=== PATIENT | male | born 1935 | race Caucasian/White ===

== ENCOUNTER 2016-12-08 20:22 | Observation (INO) ==
[2016-12-08] MEDS ORDERED: Ondansetron 4 MG/2 ML VIAL IVP ONE (20:45)
[2016-12-08] MEDS ORDERED: Acetaminophen 325 MG TABLET PO ONE (20:45)
[2016-12-08] MEDS ORDERED: 0.9 % Sodium Chloride 1,000 ML IVC ONE (20:45)
--- NOTE | 2016-12-08 20:49 | Emergency Department Note ---
Disposition Clinical Impression: UTI (urinary tract infection) Qualifiers: Urinary tract infection type: acute cystitis Hematuria presence: without hematuria Qualified Code(s): N30.00 - Acute cystitis without hematuria Disposition: Admitted As Inpatient Condition: Good Weakness HPI - General Chief complaint: ED Weakness Stated complaint: weakness Time Seen by Provider: 12/08/16 20:40 Source: patient Mode of arrival: wheelchair Limitations: no limitations Nursing Notes Reviewed: Yes Vital Signs Reviewed: Yes - History of Present Illness HPI Narrative: patient presents today with weakness. states he is too weak to get into the car or stand up. he states no fever. no abdominal pain. no fever. he has purulent yellow discharge in his urine. he self caths 3 times a day. he states he has been like this before when he had uti. no nausea, no diarrhea Pt Subjective Complaint: generalized weakness/fatigue Pain Scale: 0 - Related Data Home Medications Medication Instructions Recorded Confirmed Acetaminophen [Tylenol] 650 mg PO DAILY 01/28/16 12/08/16 Aspirin 81 mg PO DAILY 01/28/16 12/08/16 Captopril [Capoten] 12.5 mg PO DAILY 01/28/16 12/08/16 Carvedilol 25 mg PO BID 01/28/16 12/08/16 Spironolactone [Aldactone] 12.5 mg PO DAILY 01/28/16 12/08/16 Tamsulosin [Flomax] 0.4 mg PO DAILY 01/28/16 12/08/16 Allergies Allergy/AdvReac Type Severity Reaction Status Date / Time Sulfa (Sulfonamide AdvReac Hives Verified 08/04/16 17:43 Antibiotics) Review of Systems: ROS reviewed and negative except as per HPI Chart generated with voice recognition software Review of Systems: As Per HPI Past Medical History - Past Medical History Attestation: Yes The following information was validated with the patient. Source: patient Medical history: Reports: arthritis, CHF, hyperlipidemia Surgical history: Reports: non-contributory (Multiple surgeries including appendectomy, prostate surgery, multiple orthopedic surgeries and back surgery) Psychiatric history: Reports: no psych history - Social History Smoking Status: Former smoker Smokeless Tobacco Status: No Alcohol use: Reports: none Drug use: Reports: none Physical Exam General: NAD, VSS Head: normocephalic, atraumatic Neck: NO CLA, Supple Chest wall: normal rise, no creptius, no deformity noted Lungs: decreased breath sounds over the right lower lobe Heart: RRR, 1+pedal edema bilateral lower extremities Abd: soft, nontender, BS normal : deferred MSK: strength equal in all four extremities Ext: moves all four extremities, no obvious deformities Skin: cap refill normal, warm, dry Psych: normal affect, not anxious - General Limitations: no limitations Course Course Narrative: EKG interpreted by myself as a paced rhythm at a rate of [address] elevation he has flipped T waves in leads one to 3 aVF patient has uti, hx of self cathing. patient states that yesterday he didn't feel weak,b ut this morning he's been unable to get up and moving. he was unable to get himself out of the car on arrival to ED. hx of UTI, labwork reveals UTI today. Rocephin given. Given weakness, patient unable to walk and therefore cannot go home. discussed with hospitalist, will keep overnight for hydration abx and hopefully patient will be feeling better in th morning Vital Signs Temperature 98.4 F 12/08/16 20:24 Pulse Rate 77 12/08/16 20:24 Respiratory Rate 18 12/08/16 20:24 Blood Pressure 107/55 12/08/16 20:24 O2 Sat by Pulse Oximetry 93 12/08/16 20:24 Temperature 98.5 F 12/08/16 23:36 Pulse Rate 75 12/08/16 23:36 Respiratory Rate 18 12/08/16 23:52 Blood Pressure 125/61 12/08/16 23:52 O2 Sat by Pulse Oximetry 98 12/09/16 00:25 Oxygen Delivery Oxygen Delivery Room Air Weakness - Medical Records Medical records reviewed: Yes I reviewed the patient's medical records. - Lab Data Lab results reviewed: Yes I reviewed the patient's lab results. Result diagrams: 12/08/16 21:00 12/08/16 21:00 Lab Results 12/08/16 12/08/16 12/08/16 Range/Units 21:00 21:00 21:00 WBC 7.9 (4.3-11.1) K/mcL RBC 4.06 L (4.19-5.50) M/mcL Hgb 12.0 L (12.9-16.9) g/dL Hct 35.4 L (37.5-50.1) % MCV 87.2 (83.0-100.0) fL MCH 29.6 (28.0-33.3) pg MCHC 33.9 (31.6-35.5) g/dL RDW 13.7 (11.5-14.5) % Plt Count 160 (140-400) K/mcL MPV 9.2 L (9.4-12.4) fL Immature Gran % 0.3 (0-4) % Seg Neutrophils % 85.5 % Lymphocytes % 7.4 % Monocytes % 5.5 % Eosinophils % 0.9 % Basophils % 0.4 % Neutrophils # 6.8 (1.6-8.9) K/mcL Lymphocytes # 0.6 (0.6-4.6) K/mcL Monocytes # 0.4 (0.0-1.3) K/mcL Eosinophils # 0.1 (0.0-0.6) K/mcL Basophils # 0.0 (0.0-0.2) K/mcL PT 12.3 H (9.4-12.1) Seconds INR 1.1 Sodium 133 L (136-145) mEq/L Potassium 4.6 H (3.5-4.5) mEq/L Chloride 98 (98-109) mEq/L Carbon Dioxide 24 (19-29) mEq/L BUN 25 (8-26) mg/dL Creatinine 1.03 (0.72-1.25) mg/dL Est GFR ( Amer) > 60 (> 60) Est GFR (Non-Af Amer) > 60 (> 60) BUN/Creatinine Ratio 24 (6-26) Glucose 127 H (70-99) mg/dL Calculated Osmolality 282 (280-300) Lactic Acid (0.5-2.2) mmol/L Calcium 9.5 (8.6-10.8) mg/dL Ionized Calcium 1.17 (1.15-1.35) mmol/L Phosphorus 2.2 L (2.3-4.7) mg/dL Magnesium 2.0 (1.6-2.6) mg/dL Total Bilirubin 0.7 (0.2-1.2) mg/dL AST 28 (5-34) Units/L ALT 18 (0-55) Units/L Alkaline Phosphatase 78 (38-126) Units/L Troponin I (0-0.03) ng/mL Serum Total Protein 7.6 (6.0-8.3) g/dL Albumin 3.9 (3.5-5.0) g/dL Globulin 3.7 H (2.4-3.5) g/dL Albumin/Globulin Ratio 1.1 (1.1-2.2) Urine Color (Yellow) Urine Clarity (Clear) Urine pH (5.0-8.0) pH Units Ur Specific [place] (1.010-1.025) Urine Protein (Neg-Trace) mg/dL Urine Glucose (UA) (Normal) mg/dL Urine Ketones (Negative) mg/dL Urine Blood (Negative) Urine Nitrite (Negative) Urine Bilirubin (Negative) Urine Urobilinogen (Normal) mg/dL Ur Leukocyte Esterase (Negative) Urine Microscopic RBC (0-3) per hpf Urine Microscopic WBC (0-3) per hpf Ur Squamous Epith Cells (None-Few) per lpf Urine Bacteria (None-Few) per hpf Ur Culture Indicated? (NO) 12/08/16 12/08/16 12/08/16 Range/Units 21:00 21:00 21:27 WBC (4.3-11.1) K/mcL RBC (4.19-5.50) M/mcL Hgb (12.9-16.9) g/dL Hct (37.5-50.1) % MCV (83.0-100.0) fL MCH (28.0-33.3) pg MCHC (31.6-35.5) g/dL RDW (11.5-14.5) % Plt Count (140-400) K/mcL MPV (9.4-12.4) fL Immature Gran % (0-4) % Seg Neutrophils % % Lymphocytes % % Monocytes % % Eosinophils % % Basophils % % Neutrophils # (1.6-8.9) K/mcL Lymphocytes # (0.6-4.6) K/mcL Monocytes # (0.0-1.3) K/mcL Eosinophils # (0.0-0.6) K/mcL Basophils # (0.0-0.2) K/mcL PT (9.4-12.1) Seconds INR Sodium (136-145) mEq/L Potassium (3.5-4.5) mEq/L Chloride (98-109) mEq/L Carbon Dioxide (19-29) mEq/L BUN (8-26) mg/dL Creatinine (0.72-1.25) mg/dL Est GFR ( Amer) (> 60) Est GFR (Non-Af Amer) (> 60) BUN/Creatinine Ratio (6-26) Glucose (70-99) mg/dL Calculated Osmolality (280-300) Lactic Acid 2.0 (0.5-2.2) mmol/L Calcium (8.6-10.8) mg/dL Ionized Calcium (1.15-1.35) mmol/L Phosphorus (2.3-4.7) mg/dL Magnesium (1.6-2.6) mg/dL Total Bilirubin (0.2-1.2) mg/dL AST (5-34) Units/L ALT (0-55) Units/L Alkaline Phosphatase (38-126) Units/L Troponin I 0.00 (0-0.03) ng/mL Serum Total Protein (6.0-8.3) g/dL Albumin (3.5-5.0) g/dL Globulin (2.4-3.5) g/dL Albumin/Globulin Ratio (1.1-2.2) Urine Color Yellow (Yellow) Urine Clarity Cloudy A (Clear) Urine pH 7.0 (5.0-8.0) pH Units Ur Specific [place] 1.015 (1.010-1.025) Urine Protein Trace (Neg-Trace) mg/dL Urine Glucose (UA) Normal (Normal) mg/dL Urine Ketones Negative (Negative) mg/dL Urine Blood Trace-intact H (Negative) Urine Nitrite Negative (Negative) Urine Bilirubin Negative (Negative) Urine Urobilinogen Normal (Normal) mg/dL Ur Leukocyte Esterase Large H (Negative) Urine Microscopic RBC 3-5 H (0-3) per hpf Urine Microscopic WBC TNTC H (0-3) per hpf Ur Squamous Epith Cells Few (None-Few) per lpf Urine Bacteria Many H (None-Few) per hpf Ur Culture Indicated? YES A (NO) - Radiology Data Radiology results reviewed: Yes I reviewed the patient's radiology results. - EKG Data EKG attestation: Yes I reviewed and interpreted this EKG.
[2016-12-08 21:07] LABS: Basophils % 0.4 %; Eosinophils # 0.1 K/mcL (0.0-0.6); Eosinophils % 0.9 %; Hematocrit 35.4 % (37.5-50.1); Immature Granulocytes % 0.3 % (0-4); Lymphocytes # 0.6 K/mcL (0.6-4.6); Lymphocytes % 7.4 %; Mean Corpuscular HGB Conc 33.9 g/dL (31.6-35.5); Mean Corpuscular Hemoglobin 29.6 pg (28.0-33.3); Mean Corpuscular Volume 87.2 fL (83.0-100.0); Mean Platelet Volume 9.2 fL (9.4-12.4); Monocytes # 0.4 K/mcL (0.0-1.3); Monocytes % 5.5 %; Neutrophils # 6.8 K/mcL (1.6-8.9); Platelet Count 160 K/mcL (140-400); Red Blood Count 4.06 M/mcL (4.19-5.50); Red Cell Distribution Width 13.7 % (11.5-14.5); Segmented Neutrophils % 85.5 %
[2016-12-08 21:17] LABS: INR 1.1; Prothrombin Time 12.3 Seconds (9.4-12.1)
[2016-12-08 21:27] LABS: Alanine Aminotransferase 18 Units/L (0-55); Albumin 3.9 g/dL (3.5-5.0); Albumin/Globulin Ratio 1.1 (1.1-2.2); Alkaline Phosphatase 78 Units/L (38-126); Aspartate Amino Transferase 28 Units/L (5-34); BUN/Creatinine Ratio 24 (6-26); Bilirubin,Total 0.7 mg/dL (0.2-1.2); Blood Urea Nitrogen 25 mg/dL (8-26); Calcium 9.5 mg/dL (8.6-10.8); Carbon Dioxide 24 mEq/L (19-29); Chloride 98 mEq/L (98-109); Globulin 3.7 g/dL (2.4-3.5); Glucose 127 mg/dL (70-99); Osmolality,Calculated 282 (280-300); Phosphorous 2.2 mg/dL (2.3-4.7); Potassium 4.6 mEq/L (3.5-4.5); Sodium 133 mEq/L (136-145); Total Protein 7.6 g/dL (6.0-8.3); eGFR For African Americans > 60 (> 60); eGFR For Non-African Americans > 60 (> 60)
[2016-12-08 21:36] LABS: Bilirubin,Urine Negative (Negative); Blood,Urine Trace-intact (Negative); Clarity,Urine Cloudy (Clear); Color,Urine Yellow (Yellow); Glucose,Urine (UA) Normal (Normal); Ketones,Urine Negative (Negative); Leukocyte Esterase,Urine Large (Negative); Nitrite,Urine Negative (Negative); Protein,Urine Trace mg/dL (Neg-Trace); Specific Gravity,Urine 1.015 (1.010-1.025); Urobilinogen,Urine Normal (Normal)
[2016-12-08 21:45] LABS: Squamous Epithelial Cell,Urine Few per lpf (None-Few)
[2016-12-08 21:46] LABS: Bacteria,Urine Many per hpf (None-Few); WBC,Urine TNTC per hpf (0-3)
[2016-12-08 22:05] LABS: Ionized Calcium 1.17 mmol/L (1.15-1.35)
[2016-12-08] MEDS ORDERED: 0.9 % Sodium Chloride 1,000 ML IVC SCH (23:30)
[2016-12-08] MEDS ORDERED: Naloxone 0.4 MG/ML INJ IVP PRN (23:30)
[2016-12-08] MEDS ORDERED: Acetaminophen 325 MG TABLET PO PRN (23:30)
[2016-12-08] MEDS ORDERED: *HR* OxyCODONE Immed Rel 5 MG TABLET PO PRN (23:30)
[2016-12-08] MEDS ORDERED: Ondansetron 4 MG/2 ML VIAL IVP PRN (23:30)
[2016-12-09 07:51] LABS: Basophils % 0.4 %; Eosinophils % 0.2 %; Hematocrit 29.2 % (37.5-50.1); Immature Granulocytes % 0.8 % (0-4); Lymphocytes # 0.5 K/mcL (0.6-4.6); Lymphocytes % 9.9 %; Mean Corpuscular HGB Conc 34.2 g/dL (31.6-35.5); Mean Corpuscular Hemoglobin 29.9 pg (28.0-33.3); Mean Corpuscular Volume 87.4 fL (83.0-100.0); Mean Platelet Volume 9.6 fL (9.4-12.4); Monocytes # 0.4 K/mcL (0.0-1.3); Monocytes % 7.6 %; Neutrophils # 4.2 K/mcL (1.6-8.9); Platelet Count 127 K/mcL (140-400); Red Blood Count 3.34 M/mcL (4.19-5.50); Red Cell Distribution Width 13.8 % (11.5-14.5); Segmented Neutrophils % 81.1 %
[2016-12-09 08:04] LABS: BUN/Creatinine Ratio 24 (6-26); Blood Urea Nitrogen 18 mg/dL (8-26); Calcium 8.2 mg/dL (8.6-10.8); Carbon Dioxide 23 mEq/L (19-29); Chloride 99 mEq/L (98-109); Glucose 96 mg/dL (70-99); Osmolality,Calculated 270 (280-300); Potassium 4.4 mEq/L (3.5-4.5); Sodium 129 mEq/L (136-145); eGFR For African Americans > 60 (> 60); eGFR For Non-African Americans > 60 (> 60)
[2016-12-09] MEDS ORDERED: Spironolactone 25 MG TABLET PO SCH (09:00)
[2016-12-09] MEDS ORDERED: Acetaminophen 325 MG TABLET PO SCH (09:00)
[2016-12-09] MEDS ORDERED: Aspirin 81 MG TAB.CHEW PO SCH (09:00)
--- NOTE | 2016-12-09 14:11 | Electrocardiograph Report ---
[address] [address] Test Date: 2016-12-08 Pat Name: Abdullahi Angela Department: [id number] Room: [facility] Gender: M High Pressure Cleaner: TT : 1935 Requested By: Shelley Rizvi Order Number: [id number] Reading MD: Rani Casey Measurements Intervals [place] Rate: 73 P: 65 AL: 223 QRS: 188 QRSD: 154 T: 254 QT: 400 QTc: 425 Interpretive Statements ELECTRON[employer]IC[employer] PACEMAKER Electronically Signed On 12-09-2016 14:09:47 EDT by Rani Casey
[2016-12-09 15:09] VITALS: BP 97/57
--- NOTE | 2016-12-09 15:41 | Internal Med History&Physical ---
Date of Encounter: 12/09/16 Time of Encounter: 14:55 Assessment and Plan (1) UTI (urinary tract infection) Current visit: Yes Status: Acute He was given IV Rocephin in the emergency room. Urine culture was ordered. Qualifiers: Urinary tract infection type: acute cystitis Hematuria presence: without hematuria Qualified Code(s): N30.00 - Acute cystitis without hematuria Internal Medicine - H&P: HPI Chief complaint: Weakness and leg pain Admitted From: Home Plans for Post Hospital Care: Home History of present illness: Mr. Angela is a 81 year old male who came to emergency room complaining of progressive weakness and pain in his left leg onset a few hours previously. He had similar discomfort with previous urinary infections and was concerned he had a recurrent infection. He was evaluated in emergency room and admitted to [facility] with diagnoses of UTI. He states he has been doing straight cath 3 times daily at home for urinary retention. He has had prostatectomy in the past. He follows with Dr. Asencio on a regular basis. He denies kidney stones or other kidney or bladder disorders. He states he feels back to his baseline now and wishes to be discharged home. Past Med Surg Social Fam HX - Past Medical History Medical history: arthritis, CHF, hyperlipidemia Psychiatric history: no psych history - Past Surgical History Surgical History: non-contributory (Multiple surgeries including appendectomy, prostate surgery, multiple orthopedic surgeries and back surgery) - Social History Smoking Status: Former smoker Smokeless Tobacco Status: No Alcohol use: none Drug use: none Internal Medicine - H&P: Meds Acetaminophen [Tylenol] 650 mg PO DAILY 01/28/16 [History] Aspirin 81 mg PO DAILY 01/28/16 [History] Captopril [Capoten] 12.5 mg PO DAILY 01/28/16 [History] Carvedilol 25 mg PO BID 01/28/16 [History] Spironolactone [Aldactone] 12.5 mg PO DAILY 01/28/16 [History] Tamsulosin [Flomax] 0.4 mg PO DAILY 01/28/16 [History] 3 Allergy/AdvReac Type Severity Reaction Status Date / Time Sulfa (Sulfonamide AdvReac Hives Verified 08/04/16 17:43 Antibiotics) All Systems PM: A 10-system review of systems was performed and is negative for pertinent findings except as documented above in the HPI. Review of systems: Gen.: He states his weight has been stable past few months Cardiovascular: He has history of heart failure and reports LVEF of 31% on echocardiogram several years ago. He follows regularly with a [place] digital production operator. He has had ICD/pacemaker placed. He had pulmonary embolism in 1998 following prolonged illness with bed rest. He has had no recurrence. He denies hypertension or AL. Respiratory: He smoked from age [age] but denies chronic lung disease GI: Denies disorders of his liver gallbladder or exocrine pancreas : Per history of present illness Neurologic: He denies large distribution strokes or seizures. Endocrine: He has hyperlipidemia but denies diabetes or thyroid disease Hematologic/oncology: He denies blood disorders or cancers. He was unaware he had anemia. 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 - Constitutional Vitals: Temp Pulse Resp BP Pulse Ox 99.2 F 70 18 97/57 95 12/09/16 15:08 12/09/16 15:08 12/09/16 15:08 12/09/16 15:08 12/09/16 15:08 Exam: Gen.: He is a well-developed well-nourished male lying in bed who appears in no acute distress. HEENT: Head is atraumatic and normocephalic. Eyes: EOMI. There is no scleral icterus. Mouth: Mucosa is moist. Neck: Supple and nontender. There is no thyromegaly or adenopathy noted. Heart: Regular without murmurs gallops or ectopics Lungs: No wheezes or crackles are heard. Abdomen: Soft and nontender. No masses or guarding are noted. Extremities: There is no cyanosis edema, noted. Dorsalis pedis and posterior tibial pulses are trace to 1+ palpable bilaterally. Neurologic: Mental status: He is talkative and a good historian. Cranial nerves : Smile is symmetric. Forehead wrinkles bilaterally. Tongue protrudes midline. EOMI. Motor: There is no pronator drift. He has left foot drop. Cerebellar: Finger to nose is intact bilaterally. Skin: Warm and dry Internal Med - H&P Results - Labs CBC & Chem 7: 12/09/16 07:30 12/09/16 07:30 Labs: Short CBC 12/09/16 Range/Units 07:30 WBC 5.2 (4.3-11.1) K/mcL Hgb 10.0 L D (12.9-16.9) g/dL Hct 29.2 L (37.5-50.1) % Plt Count 127 L (140-400) K/mcL Neutrophils # 4.2 (1.6-8.9) K/mcL BMP 12/09/16 07:30 Sodium 129 L Potassium 4.4 Chloride 99 Carbon Dioxide 23 BUN 18 Creatinine 0.76 Glucose 96 Calcium 8.2 L
--- NOTE | 2016-12-09 15:53 | Discharge Summary ---
Date of Encounter: 12/09/16 Time of Encounter: 14:55 - Discharge Diagnosis (1) UTI (urinary tract infection) Priority: Primary Status: Acute Qualifiers: Urinary tract infection type: acute cystitis Hematuria presence: without hematuria Qualified Code(s): N30.00 - Acute cystitis without hematuria - Discharge Medications Prescriptions: Cefuroxime PO [Ceftin] 500 mg PO Q12HR #10 tablet Lactobacillus [Culturelle] 1 each PO BID #10 cap.[email or web address] Home Medications: Acetaminophen [Tylenol] 650 mg PO DAILY 01/28/16 [History] Aspirin 81 mg PO DAILY 01/28/16 [History] Captopril [Capoten] 12.5 mg PO DAILY 01/28/16 [History] Carvedilol 25 mg PO BID 01/28/16 [History] Spironolactone [Aldactone] 12.5 mg PO DAILY 01/28/16 [History] Tamsulosin [Flomax] 0.4 mg PO DAILY 01/28/16 [History] Cefuroxime PO [Ceftin] 500 mg PO Q12HR #10 tablet 12/09/16 [Rx] Lactobacillus [Culturelle] 1 each PO BID #10 cap.sprink 12/09/16 [Rx] Allergies/Adverse Reactions: 3 Allergy/AdvReac Type Severity Reaction Status Date / Time Sulfa (Sulfonamide AdvReac Hives Verified 08/04/16 17:43 Antibiotics) Date of admission: 12/08/16 22:48 Primary care physician: Dario Carrillo DO - Patient Status Disposition: Home, Self-Care Condition: Good Functional capacity at discharge: uses cane/walker Overall status at discharge: patient is progressing back to baseline - Discharge Instructions Follow Up With: Dario Carrillo DO [Primary Care Provider] - 1 week - Diet and Activity Activity: resume usual activities as tolerated Diet: advance to your usual diet Hospital course: Mr. Angela is a 81 year old male who came to emergency room complaining of progressive weakness and pain in his left leg onset a few hours previously. He had similar discomfort with previous urinary infections and was concerned he had a recurrent infection. He was evaluated in emergency room and admitted to [facility] with diagnoses of UTI. Initial orders were written by the emergency room physician. I saw him on December 09 and performed a history physical and discharge. By the time I saw him he reported he was feeling significantly improved and essentially back to baseline. He had tolerated IV Rocephin without difficulty. He will be prescribed Ceftin 500 mg twice a day for 5 days with lactobacillus at discharge. He will resume straight caths at home as prior to admission. He will follow with his PCP Dr. Carrillo within a week. - Time Spent with Patient Total time spent providing and/or coordinating discharge services: - Constitutional Vitals: Temp Pulse Resp BP Pulse Ox 99.2 F 70 18 97/57 95 12/09/16 15:08 12/09/16 15:08 12/09/16 15:08 12/09/16 15:08 12/09/16 15:08
== END 2016-12-09 16:17 | disposition home or self-care (01) ==
LOC: INPPIK 20:22 → EMEROOPIK 20:22 → INPPIK 22:50
PROVIDERS: ADMIT Internal Medicine; ATTEND Internal Medicine

== ENCOUNTER 2020-01-23 13:37 | Inpatient (IN) ==
[2020-01-23 14:54] LABS: Clarity,Urine Turbid (Clear); Color,Urine Brown (Yellow)
[2020-01-23 14:56] LABS: Bacteria,Urine Many per hpf (None-Few); Mucus,Urine Few per lpf (None-Few); RBC,Urine 50-100 per hpf (0-3); Squamous Epithelial Cell,Urine Few per hpf (None-Few); Triple Phosphate Crystal,Urine Present; WBC,Urine TNTC per hpf (0-3)
[2020-01-23] MEDS ORDERED: 0.9 % Sodium Chloride 1,000 ML IVC ONE ×2 (15:44→18:01)
[2020-01-23 16:08] LABS: Basophils % 0.3 %; Eosinophils # 0.2 K/mcL (0.0-0.6); Eosinophils % 1.3 %; Hematocrit 34.5 % (37.5-50.1); Hemoglobin 11.3 g/dL (12.9-16.9); Immature Granulocytes % 0.8 % (0-4); Lymphocytes # 0.7 K/mcL (0.6-4.6); Lymphocytes % 4.5 %; Mean Corpuscular HGB Conc 32.8 g/dL (31.6-35.5); Mean Corpuscular Hemoglobin 30.4 pg (28.0-33.3); Mean Corpuscular Volume 92.7 fL (83.0-100.0); Mean Platelet Volume 9.7 fL (9.4-12.4); Monocytes # 0.7 K/mcL (0.0-1.3); Monocytes % 4.3 %; Platelet Count 125 K/mcL (140-400); Red Blood Count 3.72 M/mcL (4.19-5.50); Red Cell Distribution Width 15.1 % (11.5-14.5); Segmented Neutrophils % 88.8 %; White Blood Count 15.8 K/mcL (4.3-11.1)
[2020-01-23 16:09] LABS: Basophils # 0.1 K/mcL (0.0-0.2)
[2020-01-23 16:28] LABS: Calcium 8.7 mg/dL (8.6-10.3)
[2020-01-23] MEDS ORDERED: cefTRIAXone 1,000 MG in 0.9 % Sodium Chloride Mini Bag 100 ML IVPB ONE (17:10)
[2020-01-23] MEDS ORDERED: Piperacillin/Tazobactam 3.375 GM in 0.9 % Sodium Chloride Mini Bag 100 ML IVPB ONE (17:39)
[2020-01-23] MEDS ORDERED: Naloxone 0.4 MG/ML INJ IVP PRN (18:57)
[2020-01-23] MEDS ORDERED: Ondansetron 4 MG/2 ML VIAL IVP PRN (19:03)
[2020-01-23] MEDS ORDERED: MOM Conc 10 ML UD.LIQ PO PRN (19:03)
[2020-01-23] MEDS ORDERED: Acetaminophen 325 MG TABLET PO PRN (19:03)
[2020-01-23] MEDS ORDERED: Mag Hydrox/Al Hydrox/Simeth 30 ML UDC PO PRN (19:03)
[2020-01-23] MEDS: 0.9 % Sodium Chloride 1,000 ML IVC SCH (19:29)
[2020-01-23] MEDS ORDERED: cefTRIAXone 2,000 MG in 0.9 % Sodium Chloride Mini Bag 100 ML IVPB SCH (20:00)
[2020-01-23] MEDS ORDERED: 0.9 % Sodium Chloride 250 ML IVC ONE (20:01)
[2020-01-24] MEDS: 0.9 % Sodium Chloride 1,000 ML IVC SCH ×3 (02:35→19:01)
[2020-01-24 08:07] LABS: Basophils % 0.1 %; Eosinophils # 0.1 K/mcL (0.0-0.6); Eosinophils % 1.6 %; Hematocrit 29.1 % (37.5-50.1); Hemoglobin 9.7 g/dL (12.9-16.9); Immature Granulocytes % 1.2 % (0-4); Lymphocytes # 0.5 K/mcL (0.6-4.6); Lymphocytes % 5.8 %; Mean Corpuscular HGB Conc 33.3 g/dL (31.6-35.5); Mean Corpuscular Hemoglobin 30.5 pg (28.0-33.3); Mean Corpuscular Volume 91.5 fL (83.0-100.0); Mean Platelet Volume 9.8 fL (9.4-12.4); Monocytes # 0.4 K/mcL (0.0-1.3); Monocytes % 5.1 %; Neutrophils # 7.4 K/mcL (1.6-8.9); Platelet Count 109 K/mcL (140-400); Red Blood Count 3.18 M/mcL (4.19-5.50); Red Cell Distribution Width 15.2 % (11.5-14.5); Segmented Neutrophils % 86.2 %; White Blood Count 8.6 K/mcL (4.3-11.1)
[2020-01-24] MEDS: *HR* Digoxin 0.125 MG TABLET PO SCH (08:21)
[2020-01-24] MEDS: Aspirin Enteric Coated 81 MG Tablet PO SCH (08:21)
[2020-01-24] MEDS: Isosorbide MONOnitrate (24 HR) 30 MG TAB.ER.24H PO SCH (08:22)
[2020-01-24 08:24] LABS: Calcium 7.6 mg/dL (8.6-10.3); Potassium 4.5 mEq/L (3.5-5.1)
[2020-01-24] MEDS: cefTRIAXone 2,000 MG in Water for inj. (sterile) 20 ML IVP SCH (16:36)
[2020-01-24] MEDS ORDERED: cefTRIAXone 2,000 MG in 0.9 % Sodium Chloride Mini Bag 100 ML IVPB SCH (17:00)
[2020-01-25] MEDS: 0.9 % Sodium Chloride 1,000 ML IVC SCH (03:12)
[2020-01-25 08:58] LABS: Hematocrit 31.5 % (37.5-50.1); Hemoglobin 10.6 g/dL (12.9-16.9); Mean Corpuscular HGB Conc 33.7 g/dL (31.6-35.5); Mean Corpuscular Hemoglobin 31.2 pg (28.0-33.3); Mean Corpuscular Volume 92.6 fL (83.0-100.0); Mean Platelet Volume 9.8 fL (9.4-12.4); Platelet Count 141 K/mcL (140-400); Red Cell Distribution Width 15.6 % (11.5-14.5); White Blood Count 5.7 K/mcL (4.3-11.1)
[2020-01-25] MEDS: *HR* Digoxin 0.125 MG TABLET PO SCH (08:59)
[2020-01-25] MEDS: Aspirin Enteric Coated 81 MG Tablet PO SCH (08:59)
[2020-01-25] MEDS: Isosorbide MONOnitrate (24 HR) 30 MG TAB.ER.24H PO SCH (08:59)
[2020-01-25] MEDS ORDERED: Furosemide 20 MG/2 ML VIAL IVP ONE (09:04)
[2020-01-25 09:11] LABS: BUN/Creatinine Ratio 23 (6-26); Blood Urea Nitrogen 30 mg/dL (8-23); Calcium 8.1 mg/dL (8.6-10.3); Carbon Dioxide 24 mEq/L (23-29); Chloride 104 mEq/L (98-107); Glucose 108 mg/dL (70-105); Osmolality,Calculated 291 (280-300); Potassium 4.3 mEq/L (3.5-5.1); Sodium 137 mEq/L (136-145); eGFR For African Americans > 60 (> 60); eGFR For Non-African Americans 52 (> 60)
[2020-01-25] MEDS: cefTRIAXone 2,000 MG in Water for inj. (sterile) 20 ML IVP SCH (18:43)
[2020-01-26 07:15] VITALS: BP 141/87
[2020-01-26] MEDS: Aspirin Enteric Coated 81 MG Tablet PO SCH (08:13)
[2020-01-26] MEDS: *HR* Digoxin 0.125 MG TABLET PO SCH (08:13)
[2020-01-26] MEDS: Isosorbide MONOnitrate (24 HR) 30 MG TAB.ER.24H PO SCH (08:13)
== END 2020-01-26 14:25 | disposition home health service (06) | DRG 699 ==
LOC: INPPIK 13:37 → EMEROOPIK 13:37 → INPPIK 19:50
PROVIDERS: ADMIT Family Medicine; ATTEND Family Medicine

== ENCOUNTER 2020-07-17 13:44 | Inpatient (IN) ==
[2020-07-17] MEDS ORDERED: 0.9 % Sodium Chloride 500 ML IVC ONE (14:06)
[2020-07-17 14:36] LABS: Bilirubin,Urine Negative (Negative); Clarity,Urine Cloudy (Clear); Color,Urine Pink (Yellow); Glucose,Urine (UA) Normal (Normal); Ketones,Urine Negative (Negative); Specific Gravity,Urine 1.015 (1.010-1.025)
[2020-07-17 14:37] LABS: Blood,Urine Large (Negative); Leukocyte Esterase,Urine Large (Negative); Nitrite,Urine Positive (Negative); PH,Urine 7.5 pH Units (5.0-8.0); Protein,Urine 50 mg/dL (Neg-Trace); RBC,Urine TNTC per hpf (0-3); Urobilinogen,Urine Normal (Normal); WBC,Urine TNTC per hpf (0-3)
[2020-07-17 14:38] LABS: Bacteria,Urine Many per hpf (None-Few)
[2020-07-17 14:41] LABS: Basophils % 0.3 %; Eosinophils # 0.2 K/mcL (0.0-0.6); Eosinophils % 2.4 %; Hematocrit 34.2 % (37.5-50.1); Hemoglobin 11.3 g/dL (12.9-16.9); Immature Granulocytes % 1.7 % (0-4); Lymphocytes # 0.8 K/mcL (0.6-4.6); Lymphocytes % 8.1 %; Mean Corpuscular Hemoglobin 30.5 pg (28.0-33.3); Mean Corpuscular Volume 92.4 fL (83.0-100.0); Mean Platelet Volume 10.1 fL (9.4-12.4); Monocytes # 0.6 K/mcL (0.0-1.3); Monocytes % 6.2 %; Neutrophils # 7.9 K/mcL (1.6-8.9); Platelet Count 153 K/mcL (140-400); Red Cell Distribution Width 15.4 % (11.5-14.5); Segmented Neutrophils % 81.3 %; White Blood Count 9.7 K/mcL (4.3-11.1)
[2020-07-17] MEDS ORDERED: cefTRIAXone 2,000 MG in 0.9 % Sodium Chloride Mini Bag 100 ML IVPB ONE (14:41)
[2020-07-17] MEDS: 0.9 % Sodium Chloride 1,000 ML IVC SCH ×3 (14:53→19:00)
[2020-07-17 14:56] LABS: Alanine Aminotransferase 24 Units/L (7-52); Albumin 3.6 g/dL (3.5-5.7); Albumin/Globulin Ratio 1.1 (1.1-2.2); Alkaline Phosphatase 99 Units/L (34-104); Aspartate Amino Transferase 26 Units/L (13-39); BUN/Creatinine Ratio 19 (6-26); Bilirubin,Total 0.5 mg/dL (0.3-1.0); Blood Urea Nitrogen 40 mg/dL (8-23); Calcium 8.7 mg/dL (8.6-10.3); Carbon Dioxide 32 mEq/L (23-29); Chloride 93 mEq/L (98-107); Globulin 3.3 g/dL (2.4-3.5); Glucose 136 mg/dL (70-105); Osmolality,Calculated 286 (280-300); Potassium 4.5 mEq/L (3.5-5.1); Sodium 132 mEq/L (136-145); Total Protein 6.9 g/dL (6.4-8.9); Troponin I < 0.03 ng/mL (< 0.04); eGFR For African Americans 35 (> 60); eGFR For Non-African Americans 29 (> 60)
[2020-07-17] MEDS ORDERED: Naloxone 0.4 MG/ML INJ IVP PRN (15:05)
[2020-07-17] MEDS ORDERED: Acetaminophen 325 MG TABLET PO PRN (15:05)
[2020-07-17] MEDS ORDERED: Ondansetron 4 MG/2 ML VIAL IVP PRN (15:05)
[2020-07-17] MEDS: carvediloL 25 MG TABLET PO SCH (19:32)
[2020-07-17] MEDS: Ipratropium/Albuterol Neb 3 ML IH PRN (19:55)
[2020-07-18] MEDS: Ipratropium/Albuterol Neb 3 ML IH PRN ×2 (00:15→06:44)
[2020-07-18] MEDS: 0.9 % Sodium Chloride 1,000 ML IVC SCH (02:27)
[2020-07-18] MEDS: *HR* Heparin 5,000 UNIT/ML VIAL SQ SCH ×3 (06:00→21:26)
[2020-07-18 06:47] LABS: Hematocrit 31.9 % (37.5-50.1); Hemoglobin 10.5 g/dL (12.9-16.9); Mean Corpuscular HGB Conc 32.9 g/dL (31.6-35.5); Mean Corpuscular Hemoglobin 30.4 pg (28.0-33.3); Mean Corpuscular Volume 92.5 fL (83.0-100.0); Mean Platelet Volume 9.7 fL (9.4-12.4); Platelet Count 148 K/mcL (140-400); Red Blood Count 3.45 M/mcL (4.19-5.50); Red Cell Distribution Width 15.5 % (11.5-14.5); White Blood Count 7.8 K/mcL (4.3-11.1)
[2020-07-18 07:13] LABS: Magnesium 1.8 mg/dL (1.6-2.6); Potassium 4.7 mEq/L (3.5-5.1)
[2020-07-18] MEDS ORDERED: CAPTOPRIL 50 MG PO SCH (09:00)
[2020-07-18] MEDS: Isosorbide MONOnitrate (24 HR) 30 MG TAB.ER.24H PO SCH (09:23)
[2020-07-18] MEDS: Aspirin Enteric Coated 81 MG Tablet PO SCH (09:23)
[2020-07-18] MEDS: carvediloL 25 MG TABLET PO SCH ×3 (09:24→17:11)
[2020-07-18] MEDS: *HR* Digoxin 0.125 MG TABLET PO SCH (09:24)
[2020-07-18] MEDS: captopriL 25 MG TABLET PO SCH (09:24)
[2020-07-18] MEDS: cefTRIAXone 2,000 MG in 0.9 % Sodium Chloride Mini Bag 100 ML IVPB SCH (14:01)
[2020-07-19] MEDS: *HR* Heparin 5,000 UNIT/ML VIAL SQ SCH ×3 (05:19→20:08)
[2020-07-19 08:04] LABS: Hematocrit 32.6 % (37.5-50.1); Hemoglobin 10.5 g/dL (12.9-16.9); Mean Corpuscular HGB Conc 32.2 g/dL (31.6-35.5); Mean Corpuscular Volume 93.1 fL (83.0-100.0); Mean Platelet Volume 9.2 fL (9.4-12.4); Platelet Count 173 K/mcL (140-400); Red Cell Distribution Width 15.5 % (11.5-14.5); White Blood Count 7.8 K/mcL (4.3-11.1)
[2020-07-19 08:31] LABS: BUN/Creatinine Ratio 20 (6-26); Blood Urea Nitrogen 24 mg/dL (8-23); Carbon Dioxide 29 mEq/L (23-29); Chloride 102 mEq/L (98-107); Glucose 93 mg/dL (70-105); Osmolality,Calculated 288 (280-300); Potassium 4.3 mEq/L (3.5-5.1); Sodium 137 mEq/L (136-145); eGFR For African Americans > 60 (> 60); eGFR For Non-African Americans 57 (> 60)
[2020-07-19] MEDS ORDERED: Furosemide 20 MG/2 ML VIAL IVP ONE ×2 (09:07→17:17)
[2020-07-19] MEDS: Ipratropium/Albuterol Neb 3 ML IH PRN (09:14)
[2020-07-19 09:36] LABS: Basophils # 0.2 K/mcL (0.0-0.2); Eosinophils # 0.8 K/mcL (0.0-0.6); Lymphocytes # 1.4 K/mcL (0.6-4.6); Monocytes # 1.1 K/mcL (0.0-1.3); Neutrophils # 3.7 K/mcL (1.6-8.9); Platelet Estimate Normal (Normal)
[2020-07-19] MEDS: Isosorbide MONOnitrate (24 HR) 30 MG TAB.ER.24H PO SCH (09:45)
[2020-07-19] MEDS: Aspirin Enteric Coated 81 MG Tablet PO SCH (09:45)
[2020-07-19] MEDS: carvediloL 25 MG TABLET PO SCH ×2 (09:45→15:52)
[2020-07-19] MEDS: cefTRIAXone 2,000 MG in 0.9 % Sodium Chloride Mini Bag 100 ML IVPB SCH (09:46)
[2020-07-19] MEDS: captopriL 25 MG TABLET PO SCH ×3 (09:46→19:54)
[2020-07-19] MEDS: *HR* Digoxin 0.125 MG TABLET PO SCH (09:46)
[2020-07-20] MEDS: *HR* Heparin 5,000 UNIT/ML VIAL SQ SCH ×3 (05:05→21:02)
[2020-07-20 08:07] LABS: Hematocrit 34.6 % (37.5-50.1); Hemoglobin 11.2 g/dL (12.9-16.9); Mean Corpuscular HGB Conc 32.4 g/dL (31.6-35.5); Mean Corpuscular Hemoglobin 29.9 pg (28.0-33.3); Mean Corpuscular Volume 92.5 fL (83.0-100.0); Mean Platelet Volume 9.5 fL (9.4-12.4); Monocytes # 0.8 K/mcL (0.0-1.3); Platelet Count 199 K/mcL (140-400); Red Blood Count 3.74 M/mcL (4.19-5.50); Red Cell Distribution Width 15.2 % (11.5-14.5); White Blood Count 10.1 K/mcL (4.3-11.1)
[2020-07-20] MEDS: captopriL 25 MG TABLET PO SCH ×3 (08:10→21:08)
[2020-07-20] MEDS: carvediloL 25 MG TABLET PO SCH ×2 (08:10→15:48)
[2020-07-20] MEDS: Aspirin Enteric Coated 81 MG Tablet PO SCH (08:10)
[2020-07-20] MEDS: *HR* Digoxin 0.125 MG TABLET PO SCH (08:10)
[2020-07-20] MEDS: Isosorbide MONOnitrate (24 HR) 30 MG TAB.ER.24H PO SCH (08:10)
[2020-07-20] MEDS: cefTRIAXone 2,000 MG in 0.9 % Sodium Chloride Mini Bag 100 ML IVPB SCH (08:11)
[2020-07-20 08:22] LABS: BUN/Creatinine Ratio 20 (6-26); Blood Urea Nitrogen 21 mg/dL (8-23); Calcium 8.1 mg/dL (8.6-10.3); Carbon Dioxide 30 mEq/L (23-29); Chloride 98 mEq/L (98-107); Glucose 97 mg/dL (70-105); Osmolality,Calculated 283 (280-300); Potassium 3.9 mEq/L (3.5-5.1); Sodium 135 mEq/L (136-145); eGFR For African Americans > 60 (> 60); eGFR For Non-African Americans > 60 (> 60)
[2020-07-20] MEDS ORDERED: Bumetanide 1 MG TABLET PO SCH (09:00)
[2020-07-20 09:08] LABS: Basophils # 0.1 K/mcL (0.0-0.2); Eosinophils # 0.6 K/mcL (0.0-0.6); Lymphocytes # 1.4 K/mcL (0.6-4.6); Neutrophils # 7.2 K/mcL (1.6-8.9)
[2020-07-20 09:13] LABS: Platelet Estimate Normal (Normal)
[2020-07-20] MEDS ORDERED: Furosemide 40 MG/4 ML VIAL IVP ONE (09:57)
[2020-07-20] MEDS ORDERED: Azithromycin 500 MG in 0.9 % Sodium Chloride 250 ML IVPB SCH (17:00)
[2020-07-20] MEDS ORDERED: Furosemide 20 MG/2 ML VIAL IVP ONE ×2 (18:00)
[2020-07-20] MEDS: Ipratropium/Albuterol Neb 3 ML IH SCH ×2 (19:56→23:41)
[2020-07-21] MEDS: Ipratropium/Albuterol Neb 3 ML IH SCH ×5 (04:32→20:35)
[2020-07-21] MEDS: *HR* Heparin 5,000 UNIT/ML VIAL SQ SCH ×3 (05:49→21:13)
[2020-07-21 07:07] LABS: Basophils % 0.3 %; Eosinophils # 0.6 K/mcL (0.0-0.6); Eosinophils % 5.6 %; Hematocrit 38.7 % (37.5-50.1); Hemoglobin 11.9 g/dL (12.9-16.9); Immature Granulocytes % 16.1 % (0-4); Lymphocytes # 1.8 K/mcL (0.6-4.6); Lymphocytes % 16.1 %; Mean Corpuscular HGB Conc 30.7 g/dL (31.6-35.5); Mean Corpuscular Hemoglobin 30.4 pg (28.0-33.3); Mean Platelet Volume 10.7 fL (9.4-12.4); Monocytes # 0.9 K/mcL (0.0-1.3); Monocytes % 8.3 %; Red Blood Count 3.91 M/mcL (4.19-5.50); Red Cell Distribution Width 15.4 % (11.5-14.5); Segmented Neutrophils % 53.6 %; White Blood Count 11.1 K/mcL (4.3-11.1)
[2020-07-21] MEDS ORDERED: Furosemide 20 MG/2 ML VIAL IVP ONE (07:37)
[2020-07-21 07:40] LABS: Platelet Count 91 K/mcL (140-400)
[2020-07-21 07:58] LABS: BUN/Creatinine Ratio 20 (6-26); Blood Urea Nitrogen 23 mg/dL (8-23); Calcium 8.5 mg/dL (8.6-10.3); Carbon Dioxide 29 mEq/L (23-29); Chloride 97 mEq/L (98-107); Glucose 93 mg/dL (70-105); Osmolality,Calculated 281 (280-300); Potassium 4.3 mEq/L (3.5-5.1); Sodium 134 mEq/L (136-145); eGFR For African Americans > 60 (> 60); eGFR For Non-African Americans > 60 (> 60)
[2020-07-21] MEDS: Isosorbide MONOnitrate (24 HR) 30 MG TAB.ER.24H PO SCH (08:16)
[2020-07-21] MEDS: *HR* Digoxin 0.125 MG TABLET PO SCH (08:16)
[2020-07-21] MEDS: captopriL 25 MG TABLET PO SCH (08:17)
[2020-07-21] MEDS: carvediloL 25 MG TABLET PO SCH (08:17)
[2020-07-21] MEDS: Aspirin Enteric Coated 81 MG Tablet PO SCH (08:17)
[2020-07-21] MEDS: cefTRIAXone 2,000 MG in 0.9 % Sodium Chloride Mini Bag 100 ML IVPB SCH (08:17)
[2020-07-21] MEDS ORDERED: 0.9 % Sodium Chloride 250 ML IVC ONE (10:26)
[2020-07-21] MEDS ORDERED: 0.9 % Sodium Chloride 250 ML ONE (10:29)
[2020-07-21] MEDS: MethylPREDNISolone 40 MG/ML VIAL IVP SCH ×2 (16:35→23:42)
[2020-07-22] MEDS: Ipratropium/Albuterol Neb 3 ML IH SCH ×6 (00:02→20:49)
[2020-07-22] MEDS ORDERED: Furosemide 20 MG/2 ML VIAL IVP ONE (02:20)
[2020-07-22] MEDS: *HR* Heparin 5,000 UNIT/ML VIAL SQ SCH ×3 (05:40→20:18)
[2020-07-22] MEDS: Aspirin Enteric Coated 81 MG Tablet PO SCH (08:34)
[2020-07-22] MEDS: carvediloL 6.25 MG TABLET PO SCH ×2 (08:34→15:38)
[2020-07-22] MEDS: *HR* Digoxin 0.125 MG TABLET PO SCH (08:34)
[2020-07-22] MEDS: Isosorbide MONOnitrate (24 HR) 30 MG TAB.ER.24H PO SCH (08:34)
[2020-07-22] MEDS: cefTRIAXone 2,000 MG in 0.9 % Sodium Chloride Mini Bag 100 ML IVPB SCH (08:34)
[2020-07-22] MEDS: MethylPREDNISolone 40 MG/ML VIAL IVP SCH ×2 (08:34→15:45)
[2020-07-22 09:34] LABS: Basophils % 0.2 %; Eosinophils % 0.1 %; Hematocrit 37.6 % (37.5-50.1); Hemoglobin 12.3 g/dL (12.9-16.9); Immature Granulocytes % 17.6 % (0-4); Lymphocytes # 1.2 K/mcL (0.6-4.6); Lymphocytes % 7.9 %; Mean Corpuscular HGB Conc 32.7 g/dL (31.6-35.5); Mean Corpuscular Volume 91.7 fL (83.0-100.0); Mean Platelet Volume 9.9 fL (9.4-12.4); Monocytes # 0.2 K/mcL (0.0-1.3); Monocytes % 1.3 %; Platelet Count 279 K/mcL (140-400); Red Cell Distribution Width 14.9 % (11.5-14.5); Segmented Neutrophils % 72.9 %
[2020-07-22 09:36] LABS: Neutrophils # 10.9 K/mcL (1.6-8.9)
[2020-07-22 09:44] LABS: BUN/Creatinine Ratio 21 (6-26); Blood Urea Nitrogen 25 mg/dL (8-23); Calcium 8.7 mg/dL (8.6-10.3); Carbon Dioxide 30 mEq/L (23-29); Chloride 95 mEq/L (98-107); Glucose 153 mg/dL (70-105); Osmolality,Calculated 285 (280-300); Potassium 4.5 mEq/L (3.5-5.1); Sodium 134 mEq/L (136-145); eGFR For African Americans > 60 (> 60); eGFR For Non-African Americans 57 (> 60)
[2020-07-22 09:52] LABS: Large Platelets Present (Not Present); Platelet Estimate Normal (Normal)
[2020-07-22] MEDS: levoFLOXacin 500 MG/100 ML 500 MG/100 ML BAG IVPB SCH (10:55)
[2020-07-22 12:42] LABS: Adenovirus Not Detected (Not Detect); Bordetella Pertussis Not Detected (Not Detect); Chlamydophila pneumoniae Not Detected (Not Detect); Coronavirus 229E Not Detected (Not Detect); Coronavirus HKU1 Not Detected (Not Detect); Coronavirus NL63 Not Detected (Not Detect); Coronavirus OC43 Not Detected (Not Detect); Human Metapneumovirus Not Detected (Not Detect); Human Rhinovirus/Enterovirus Not Detected (Not Detect); Influenza A Subtype 2009 H1 Not Detected (Not Detect); Influenza B Not Detected (Not Detect); Mycoplasma pneumoniae Not Detected (Not Detect); Parainfluenza Virus 1 Not Detected (Not Detect); Parainfluenza Virus 2 Not Detected (Not Detect); Parainfluenza Virus 3 Not Detected (Not Detect); Parainfluenza Virus 4 Not Detected (Not Detect); Respiratory Syncytial Virus Not Detected (Not Detect); SARS-CoV-2 Not Detected (Not Detect)
[2020-07-22] MEDS: captopriL 25 MG TABLET PO SCH (15:39)
[2020-07-22] MEDS: Bumetanide 1 MG TABLET PO SCH (15:39)
[2020-07-23] MEDS: MethylPREDNISolone 40 MG/ML VIAL IVP SCH ×4 (00:13→23:03)
[2020-07-23] MEDS: Ipratropium/Albuterol Neb 3 ML IH SCH ×6 (00:45→19:48)
[2020-07-23] MEDS: *HR* Heparin 5,000 UNIT/ML VIAL SQ SCH ×3 (06:13→21:37)
[2020-07-23 07:37] LABS: Hematocrit 34.5 % (37.5-50.1); Hemoglobin 11.3 g/dL (12.9-16.9); Mean Corpuscular HGB Conc 32.8 g/dL (31.6-35.5); Mean Corpuscular Hemoglobin 30.3 pg (28.0-33.3); Mean Corpuscular Volume 92.5 fL (83.0-100.0); Mean Platelet Volume 9.2 fL (9.4-12.4); Platelet Count 283 K/mcL (140-400); Red Blood Count 3.73 M/mcL (4.19-5.50); Red Cell Distribution Width 14.9 % (11.5-14.5); White Blood Count 24.4 K/mcL (4.3-11.1)
[2020-07-23 08:06] LABS: BUN/Creatinine Ratio 24 (6-26); Blood Urea Nitrogen 28 mg/dL (8-23); Calcium 8.3 mg/dL (8.6-10.3); Carbon Dioxide 30 mEq/L (23-29); Chloride 95 mEq/L (98-107); Glucose 140 mg/dL (70-105); Osmolality,Calculated 286 (280-300); Sodium 134 mEq/L (136-145); eGFR For African Americans > 60 (> 60); eGFR For Non-African Americans > 60 (> 60)
[2020-07-23 08:17] LABS: Platelet Estimate Normal (Normal)
[2020-07-23] MEDS: *HR* Digoxin 0.125 MG TABLET PO SCH (08:18)
[2020-07-23] MEDS: captopriL 25 MG TABLET PO SCH ×3 (08:18→16:53)
[2020-07-23] MEDS: Isosorbide MONOnitrate (24 HR) 30 MG TAB.ER.24H PO SCH (08:18)
[2020-07-23] MEDS: carvediloL 6.25 MG TABLET PO SCH ×2 (08:19→16:53)
[2020-07-23] MEDS: Aspirin Enteric Coated 81 MG Tablet PO SCH (08:19)
[2020-07-23] MEDS: Bumetanide 1 MG TABLET PO SCH (08:19)
[2020-07-23] MEDS: levoFLOXacin 500 MG/100 ML 500 MG/100 ML BAG IVPB SCH (08:19)
[2020-07-23 08:21] LABS: Basophils % 0.1 %; Immature Granulocytes % 13.6 % (0-4); Lymphocytes % 5.7 %; Neutrophils # 18.9 K/mcL (1.6-8.9); Segmented Neutrophils % 77.6 %
[2020-07-23 08:22] LABS: Lymphocytes # 1.4 K/mcL (0.6-4.6); Monocytes # 0.7 K/mcL (0.0-1.3)
[2020-07-23] MEDS ORDERED: GuaiFENesin/Dextromethorphan TABLET PO PRN (14:11)
[2020-07-24] MEDS: Ipratropium/Albuterol Neb 3 ML IH SCH ×4 (00:50→13:04)
[2020-07-24] MEDS: *HR* Heparin 5,000 UNIT/ML VIAL SQ SCH ×2 (05:19→14:55)
[2020-07-24 07:10] LABS: Basophils # 0.1 K/mcL (0.0-0.2); Basophils % 0.6 %; Hematocrit 33.6 % (37.5-50.1); Hemoglobin 11.1 g/dL (12.9-16.9); Immature Granulocytes % 11.3 % (0-4); Lymphocytes # 1.1 K/mcL (0.6-4.6); Lymphocytes % 4.9 %; Mean Corpuscular Hemoglobin 30.2 pg (28.0-33.3); Mean Corpuscular Volume 91.3 fL (83.0-100.0); Mean Platelet Volume 8.9 fL (9.4-12.4); Monocytes # 0.6 K/mcL (0.0-1.3); Monocytes % 2.7 %; Neutrophils # 18.4 K/mcL (1.6-8.9); Platelet Count 274 K/mcL (140-400); Red Blood Count 3.68 M/mcL (4.19-5.50); Segmented Neutrophils % 80.5 %; White Blood Count 22.9 K/mcL (4.3-11.1)
[2020-07-24 08:09] LABS: BUN/Creatinine Ratio 29 (6-26); Blood Urea Nitrogen 36 mg/dL (8-23); Calcium 8.1 mg/dL (8.6-10.3); Carbon Dioxide 32 mEq/L (23-29); Chloride 96 mEq/L (98-107); Glucose 136 mg/dL (70-105); Osmolality,Calculated 290 (280-300); Potassium 4.2 mEq/L (3.5-5.1); Sodium 135 mEq/L (136-145); eGFR For African Americans > 60 (> 60); eGFR For Non-African Americans 56 (> 60)
[2020-07-24 08:31] LABS: Platelet Estimate Normal (Normal)
[2020-07-24] MEDS: levoFLOXacin 500 MG/100 ML 500 MG/100 ML BAG IVPB SCH (08:48)
[2020-07-24] MEDS: Aspirin Enteric Coated 81 MG Tablet PO SCH (08:49)
[2020-07-24] MEDS: Isosorbide MONOnitrate (24 HR) 30 MG TAB.ER.24H PO SCH (08:49)
[2020-07-24] MEDS: captopriL 25 MG TABLET PO SCH ×2 (08:49→11:37)
[2020-07-24] MEDS: MethylPREDNISolone 40 MG/ML VIAL IVP SCH (08:49)
[2020-07-24] MEDS: Bumetanide 1 MG TABLET PO SCH (08:49)
[2020-07-24] MEDS: *HR* Digoxin 0.125 MG TABLET PO SCH (08:49)
[2020-07-24] MEDS: carvediloL 6.25 MG TABLET PO SCH (08:49)
[2020-07-24 11:07] VITALS: BP 118/66
[2020-07-25] MEDS ORDERED: predniSONE 20 MG TABLET PO SCH (09:00)
== END 2020-07-24 15:02 | disposition other institution (70) | DRG 698 ==
LOC: EMEROOPIK 13:44 → INPPIK 13:44
PROVIDERS: ADMIT Family Medicine; ATTEND Family Medicine

== ENCOUNTER 2020-07-24 15:26 | Inpatient (IN) ==
[2020-07-24] MEDS ORDERED: GuaiFENesin/Dextromethorphan TABLET PO PRN (16:00)
[2020-07-24] MEDS: captopriL 25 MG TABLET PO SCH (16:54)
[2020-07-24] MEDS: carvediloL 6.25 MG TABLET PO SCH (16:54)
[2020-07-24] MEDS ORDERED: Acetaminophen 325 MG TABLET PO PRN (17:00)
[2020-07-24] MEDS: Ipratropium/Albuterol Neb 3 ML IH SCH ×3 (17:27→22:38)
[2020-07-25] MEDS: Ipratropium/Albuterol Neb 3 ML IH SCH ×2 (03:09→07:45)
[2020-07-25] MEDS: *HR* Enoxaparin 40 MG/0.4 ML SYRINGE SQ SCH (05:19)
[2020-07-25] MEDS: Ascorbic Acid 500 MG TABLET PO SCH (05:19)
[2020-07-25 07:06] LABS: Hematocrit 33.3 % (37.5-50.1); Hemoglobin 11.2 g/dL (12.9-16.9); Mean Corpuscular HGB Conc 33.6 g/dL (31.6-35.5); Mean Corpuscular Hemoglobin 30.6 pg (28.0-33.3); Mean Platelet Volume 9.1 fL (9.4-12.4); Nucleated Red Blood Cells 0.1 /100 WBC (0); Platelet Count 246 K/mcL (140-400); Red Blood Count 3.66 M/mcL (4.19-5.50); Red Cell Distribution Width 14.9 % (11.5-14.5); White Blood Count 22.1 K/mcL (4.3-11.1)
[2020-07-25 07:32] LABS: BUN/Creatinine Ratio 30 (6-26); Blood Urea Nitrogen 32 mg/dL (8-23); Carbon Dioxide 33 mEq/L (23-29); Chloride 96 mEq/L (98-107); Glucose 100 mg/dL (70-105); Osmolality,Calculated 285 (280-300); Sodium 134 mEq/L (136-145); eGFR For African Americans > 60 (> 60); eGFR For Non-African Americans > 60 (> 60)
[2020-07-25] MEDS: Aspirin Enteric Coated 81 MG Tablet PO SCH (07:59)
[2020-07-25] MEDS: Bumetanide 1 MG TABLET PO SCH (08:00)
[2020-07-25] MEDS: *HR* Digoxin 0.125 MG TABLET PO SCH (08:00)
[2020-07-25] MEDS: Isosorbide MONOnitrate (24 HR) 30 MG TAB.ER.24H PO SCH (08:00)
[2020-07-25] MEDS: captopriL 25 MG TABLET PO SCH ×3 (08:00→16:49)
[2020-07-25] MEDS: predniSONE 20 MG TABLET PO SCH (08:00)
[2020-07-25] MEDS: Multivit/Ca/Min/Fe/FA 1 TAB TABLET PO SCH (08:01)
[2020-07-25] MEDS: carvediloL 6.25 MG TABLET PO SCH ×2 (08:01→16:49)
[2020-07-25 08:09] LABS: Lymphocytes # 2.2 K/mcL (0.6-4.6); Monocytes # 0.4 K/mcL (0.0-1.3); Neutrophils # 17.7 K/mcL (1.6-8.9); Platelet Estimate Normal (Normal)
[2020-07-25] MEDS ORDERED: levoFLOXacin 500 MG/100 ML 500 MG/100 ML BAG IVPB SCH (09:00)
[2020-07-25] MEDS ORDERED: LEVOFLOXACIN 500 MG/100 ML IVPB SCH (09:00)
[2020-07-25] MEDS ORDERED: Ipratropium/Albuterol Neb 3 ML IH PRN (10:08)
[2020-07-25] MEDS: Budesonide/Formoterol 160/4.5 1 PUFF INH IH SCH ×2 (10:41→21:58)
[2020-07-25] MEDS ORDERED: 0.9 % Sodium Chloride 500 ML ONE (16:44)
[2020-07-25] MEDS ORDERED: 0.9 % Sodium Chloride 500 ML IVC ONE (16:52)
[2020-07-26] MEDS: *HR* Enoxaparin 40 MG/0.4 ML SYRINGE SQ SCH (06:26)
[2020-07-26] MEDS: Ascorbic Acid 500 MG TABLET PO SCH (06:26)
[2020-07-26] MEDS ORDERED: captopriL 25 MG TABLET PO SCH (07:00)
[2020-07-26 07:09] VITALS: BP 143/78
[2020-07-26] MEDS: predniSONE 20 MG TABLET PO SCH (08:42)
[2020-07-26] MEDS: *HR* Digoxin 0.125 MG TABLET PO SCH (08:42)
[2020-07-26] MEDS: Isosorbide MONOnitrate (24 HR) 30 MG TAB.ER.24H PO SCH (08:42)
[2020-07-26] MEDS: Aspirin Enteric Coated 81 MG Tablet PO SCH (08:42)
[2020-07-26] MEDS: Multivit/Ca/Min/Fe/FA 1 TAB TABLET PO SCH (08:43)
[2020-07-26] MEDS: carvediloL 6.25 MG TABLET PO SCH (08:43)
[2020-07-26] MEDS: Bumetanide 1 MG TABLET PO SCH (08:43)
[2020-07-26] MEDS ORDERED: levoFLOXacin 750 MG TABLET PO SCH (09:00)
[2020-07-26] MEDS: Budesonide/Formoterol 160/4.5 1 PUFF INH IH SCH (09:59)
[2020-07-27] MEDS ORDERED: predniSONE 10 MG TABLET PO SCH (09:00)
[2020-07-29] MEDS ORDERED: predniSONE 20 MG TABLET PO SCH (09:00)
[2020-07-31] MEDS ORDERED: predniSONE 10 MG TABLET PO SCH (09:00)
== END 2020-07-26 14:44 | disposition home health service (06) | DRG 945 ==
LOC: INPPIK 16:36
PROVIDERS: ADMIT Family Medicine; ATTEND Family Medicine